=== PATIENT | male | born 1980 | race Caucasian/White ===

== ENCOUNTER → 2017-02-18 | Outpatient (REF) | payer OTHER | LOC: M SFHCLERA 12:46 | PROVIDERS: ATTEND Nurse Practitioner Family | DX: J02.9 Acute pharyngitis, unspecified (principal) ==

== ENCOUNTER → 2018-03-01 | Outpatient (CLI) | payer OTHER | LOC: M LRY 12:23 | DX: R05 Cough (principal); R06.02 Shortness of breath | CPT/HCPCS: 71046 ==

== ENCOUNTER → 2020-07-09 | Outpatient (CLI) | payer OTHER ==
--- NOTE | 2020-07-09 15:30 | REP ---
INDICATION: SPRAIN. COMPARISON: None. TECHNIQUE: There are 7 views including flexion and extension. FINDINGS: T1 is obscured by the shoulders. Vertebral body heights, interspacing and alignment unremarkable C1 through C7 except for degenerative disc disease at C6-7. The prevertebral soft tissues are unremarkable. The facets are normally aligned. There is no spondylolisthesis on flexion or extension. There is bilateral foraminal encroachment from uncinate spurring, on the left at C 3-4 and C 4-5 and on the right at C5-6. IMPRESSION: C5-6 degenerative disc disease. Bilateral foraminal encroachment from uncinate spurring as described. T1 is obscured by the shoulders. <Electronically signed by Edvin Escamilla > 07/09/20 [id number]
== END ==
LOC: M WUC 13:04
PROVIDERS: ATTEND Physician Assistant
DX: M50.322 Other cervical disc degeneration at C5-C6 level (principal); S13.4XXA Sprain of ligaments of cervical spine, initial encounter; X58.XXXA Exposure to other specified factors, initial encounter; Y92.9 Unspecified place or not applicable

== ENCOUNTER → 2020-07-29 | Outpatient (CLI) | payer OTHER ==
--- NOTE | 2020-07-29 16:24 | REP ---
INDICATION: OTHER SPONDYLOSIS WITH RADICULOPATHY, CERVICAL REGION. COMPARISON: 07/09/2020 TECHNIQUE: AP and lateral views of the cervical spine FINDINGS: There has been no change since the recent prior examination. Focal moderate degenerative disc osteophyte complex at C6-7 again noted along with mild reversal of normal lordosis. IMPRESSION: No change from recent prior examination <Electronically signed by Vern Nuno > 07/29/20 [id number]
== END ==
LOC: M RAD 15:52
PROVIDERS: ATTEND Orthopaedic Surgery
DX: M47.22 Other spondylosis with radiculopathy, cervical region (principal)